=== PATIENT | female | born 1995 | race Caucasian/White ===

== ENCOUNTER → 2018-01-07 14:24 | Outpatient (CLI) | payer OTHER, SELFPAY ==
[2018-01-07 18:17] LABS: Chlamydia Trachomatis by PCR Negative (Negative); Neisserai gonorrhoeae by PCR Negative (Negative); Probe Check PASS; Sample Adequacy Control PASS; Specimen Processing Control PASS
== END ==
PROVIDERS: Visit Provider Obstetrics & Gynecology
DX: Z12.4 Encounter for screening for malignant neoplasm of cervix (principal); Z11.3 Encounter for screening for infections with a predominantly sexual mode of transmission
CPT/HCPCS: 87491; 87591; 88175; G0145

== ENCOUNTER → 2018-02-11 13:42 | Outpatient (CLI) | payer OTHER, SELFPAY ==
[2018-02-11 15:51] LABS: Absolute Lymphocyte Count 1.43 X10^3/ul (0.83-4.51); Absolute Neutrophil Count 6.5 X10^3/uL (2.0-7.7); Basophil# 0.02 X10^3/uL; Basophil% 0.2 % (0-1); Eosinophil# 0.11 X10^3/uL; Eosinophils% 1.3 % (0-5); Hematocrit 39.2 % (37-47); Hemoglobin 13.2 g/dl (12.0-15.0); Lymphocyte # 1.43 X10^3/ul (4.0); Lymphocyte % 16.6 % (19-41); Mean Corp Hgb Conc 33.7 g/gl (32-36); Mean Corpuscular Hgb 30.9 pg (27.0-32.0); Mean Corpuscular Volume 91.8 fL (81-99); Mean Platelet Vol. 10.4 fl (6.2-12.0); Monocyte# 0.56 X10^3/uL; Monocyte% 6.5 % (0-10); Neutrophil # 6.46 X10^3/uL (2.7-7.7); Neutrophil % 75.3 % (47-70); POSITIVE COUNT NO; POSITIVE DIFFERENTIAL NO; POSITIVE MORPHOLOGY NO; Platelet Count 275 K/mm3 (150-450); RBC Distribution Width CV 12.9 % (11.6-14.6); RBC Distribution Width SD 42.9 fl (35.1-43.9); Red Blood Count 4.27 M/mm3 (4.2-5.4); White Blood Count 8.6 K/mm3 (4.4-11.0)
[2018-02-11 15:57] LABS: Color, Urine Yellow (Yellow); Glucose, Dipstick Normal (Normal); Ketone-Dipstick Negative (Negative); Leukocyte Esterase-Dipstick Negative /ul (Negative); Nitrite-Dipstick Negative (Negative); Occult Blood-Urine Negative /ul (Negative); Protein-Dipstick Negative (Negative); Urine Bilirubin Dipstick Negative (Negative); Urine Clarity Sl. Cloudy (Clear); Urine Urobilinogen Normal (Normal); Urine pH 6.5 (5.0 - 8.0)
[2018-02-11 16:06] LABS: Amphetamine Urine VISTA NEGATIVE (<1000 ng/mL); Barbiturate Urine VISTA NEGATIVE (< 200 ng/mL); Benzodiazepine Urine VISTA NEGATIVE (< 200 ng/mL); Cocaine Urine VISTA NEGATIVE (< 300 ng/mL); Ecstacy Urine VISTA NEGATIVE (< 500 ng/mL); Methadone Urine VISTA NEGATIVE (< 300 ng/mL); PCP Urine VISTA NEGATIVE (< 25 ng/mL); THC Urine VISTA NEGATIVE (< 50 ng/mL); Vista UDS pH Range 6
[2018-02-11 16:21] LABS: Thyroid Stim Hormone (TSH) 3.15 uIU/mL (0.358-3.74)
[2018-02-12 01:21] LABS: Prenatal RPR NONREACTIVE (NONREACTIVE)
[2018-02-12 11:05] LABS: HIV - WCH Non-Reactive (Nonreactive); Rubella IgG 133.4 IU/mL
[2018-02-15 09:10] LABS: HEPATITIS B SURFACE AG Negative (Negative); Hep C Antibodies <0.1 s/co ratio (0.0-0.9)
== END ==
PROVIDERS: Visit Provider Obstetrics & Gynecology
DX: Z34.81 Encounter for supervision of other normal pregnancy, first trimester (principal)
CPT/HCPCS: 36415; 80307; 81002; 84443; 85025; 86703; 86762; 86803; 87340

== ENCOUNTER → 2018-06-03 10:23 | Outpatient (CLI) | payer OTHER, SELFPAY ==
[2018-06-03 10:38] LABS: Hematocrit 35.1 % (37-47); Hemoglobin 12.1 g/dl (12.0-15.0); Mean Corp Hgb Conc 34.5 g/gl (32-36); Mean Corpuscular Hgb 32.7 pg (27.0-32.0); Mean Corpuscular Volume 94.9 fL (81-99); Mean Platelet Vol. 9.8 fl (6.2-12.0); Platelet Count 253 K/mm3 (150-450); RBC Distribution Width CV 12.5 % (11.6-14.6); RBC Distribution Width SD 42.1 fl (35.1-43.9); White Blood Count 7.9 K/mm3 (4.4-11.0)
[2018-06-03 10:46] LABS: Scan Indicated on CBC? Y/N NO
[2018-06-03 10:56] LABS: Glucose Challenge Gest 1H 50g 139 mg/dL (70-140)
== END ==
PROVIDERS: Visit Provider Obstetrics & Gynecology
DX: Z34.83 Encounter for supervision of other normal pregnancy, third trimester (principal)
CPT/HCPCS: 36415; 82950; 85027; 86850

== ENCOUNTER → 2018-07-29 13:20 | Outpatient (CLI) | payer OTHER, SELFPAY ==
[2018-07-29 15:15] LABS: Group B Strep DNA By PCR Negative (Negative); Internal Control PASS; Probe Check PASS; Specimen Processing Control PASS
== END ==
PROVIDERS: Visit Provider Obstetrics & Gynecology
DX: Z36.85 Encounter for antenatal screening for Streptococcus B (principal)
CPT/HCPCS: 87081; 87653

== ENCOUNTER 2018-08-10 11:15 | Inpatient (IN) | payer OTHER, SELFPAY ==
[2018-08-10 11:28] VITALS: BMI 28.8
[2018-08-10] MEDS: Lactated Ringers 1,000 ML 50 ML IV (12:00)
[2018-08-10 12:45] LABS: Hematocrit 34.2 % (37-47); Hemoglobin 11.4 g/dl (12.0-15.0); Mean Corp Hgb Conc 33.3 g/gl (32-36); Mean Corpuscular Hgb 31.4 pg (27.0-32.0); Mean Corpuscular Volume 94.2 fL (81-99); Mean Platelet Vol. 10.6 fl (6.2-12.0); Platelet Count 344 K/mm3 (150-450); RBC Distribution Width CV 12.2 % (11.6-14.6); RBC Distribution Width SD 40.7 fl (35.1-43.9); Red Blood Count 3.63 M/mm3 (4.2-5.4); White Blood Count 9.4 K/mm3 (4.4-11.0)
[2018-08-10 12:51] LABS: Scan Indicated on CBC? Y/N NO
--- NOTE | 2018-08-10 17:57 | PCM.PN.BLA ---
Progress Note LABOR PROGRESS NOTE c/o painful contractions. AVSS, BP 145/94 P 75 Y 98.6 GEN - breathing through contractions, AAO x 3 FHR 130, moderate variability, + accelerations, no deceleratoins TOCO 4-5/10 min SVE 7/90/-2, head well applied to cervix A/P: 22yo @ 37 6/7wga in active labor, Cat I FHR -BPs mildly elevated, no sx preeclampsia, will continue to monitor. -Recommend starting pitocin, reviewed with patient risks, benefits. Pt in agreement with plan. -Maternal and statuses reassuring
[2018-08-10] MEDS: Oxytocin 30 units/NS 500 ml 30 UNITS/500 ML IV.SOLN 334 UNITS IV (22:37)
[2018-08-10] MEDS: Oxytocin 30 units/NS 500 ml 30 UNITS/500 ML IV.SOLN 167 UNITS IV (23:07)
--- NOTE | 2018-08-10 23:16 | PCM.OB.VAG ---
- Problem List (1) 37 weeks gestation of Status: Acute (2) (spontaneous vaginal delivery) Status: Acute Vaginal Delivery Maternal Presentation: Active Labor, Spontaneous Rupture of Membranes Amniotic Membrane Rupture Type: Spontaneous at home Rupture of Membrane time: 08/10/18 0600h Amniotic Fluid Description: Bloody Final JENS: 08/25/18 Final EJNS Source: US <20 weeks Gestational age: 37 Weeks and 6 Days Date of Procedure: 08/10/18 Pre-Operative Diagnosis: 37 6/7wga, labor Post-Operative Diagnosis: 37 6/7wga, labor Surgery/ Procedure Performed: Spontaneous Vaginal Delivery Type of Anesthesia: None Description of Procedure: Patient was FD/+1 station on my arrival. She pushed intermittently with and without coaching over 2 hour to deliver a vigorous male infant in CARLOZ. The was placed on the maternal abdomen and further attended by nursery personnel. The cord was doubly clamped and cut after 3 minutes of life. Cord blood was obtained. The placenta delivered spontaneously and appeared intact on inspection. A second degree perineal laceration with vaginal extension was repaired with 3-0 Vicryl Rapide following injection of 1% lidocaine. Sponge and needle counts correct x 2. Presentation: Vertex Placental Delivery Description: Spontaneous Placenta Disposition: [facility] Cord Vessel Description: 3 Vessels Nuchal Cord Compression: Without compression Cord Gases drawn per routine: ABG, VBG Cord Entanglement: None Estimated Blood Loss: 450 ml Infant A gender: Male (1 minute): 8 (5 minute): 10 Episiotomy Description: None Laceration: Midline, Perineal Extension/lac, Vaginal Extension/lac, 2nd degree Medications given after delivery: IV Pitocin Complications: None
--- NOTE | 2018-08-10 23:30 | DCINST_ITS ---
Discharge Diet: No Restrictions Discharge Activity: Return to Normal Activity, May Shower, May Take a Tub Bath May resume sexual activity in: 6 weeks Lifting Restrictions: 10 - 20 lb Call your doctor if you observe: Fever of 101 or Higher, Inability to urinate, Inability to have a bowel movement, Using more than one pad per hour, Shortness of breath, Chest pain, Calf discomfort, Uncontrolled pain, - - Severe or persistent headache Suture Line Care: Avoid Pulling/Pushing Cleanse incision/area with: Soap & Water Additional Instructions: If you experience any of the following, contact your healthcare provider. * Bleeding that soaks a pad every hour for 2 hours * Fever 100.4 or higher * Unrelieved incision or abdominal pain * Swelling, redness, discharge or bleeding from your incision or episiotomy site * Your incision begins to separate * Problems urinating (including inability to urinate or burning while urinating). * Visual changes * Severe headache * Flu-like symptoms * Pain or redness in one of both of your breasts * Pain, warmth, tenderness or swelling in your legs, especially the calf area * Frequent nausea and vomiting * Symptoms of depression or anxiety If you experience any of the following, call 911 or go to the nearest Emergency Room. * Chest pain * Problems breathing * Seizure activity * Partial or complete paralysis of a body part, slurred speech, weakness or drooping of the face, or a sudden inability to walk or hold your balance Allergies/Adverse Reactions: Allergies Iodine and Iodide Containing Produc Allergy (Verified 08/10/18 11:30) Swelling shellfish derived Allergy (Verified 07/06/17 21:14) Anaphylaxis Medications to take at Discharge Vits [Prenatabs FA ] 2 tab PO QHS 07/06/17 Fluoxetine [Prozac] 20 mg PO DAILY 08/10/18 Ibuprofen 600 mg PO TID PRN #30 tablet 08/10/18 The following prescriptions were given: Ibuprofen 600 mg PO TID PRN #30 tablet PRN Reason: Pain Please Follow Up With: Ricardo Christy MD When: 1-2 weeks Please Follow Up With: Ricardo Christy MD When: 6 weeks Primary Care Physician: [facility] [Primary Care Provider] - Test Results: Test results from this visit will be discussed in further detail at your follow- up appointment, if applicable.
[2018-08-11] MEDS: Ibuprofen 600 MG Tablet PO (00:35)
[2018-08-11] MEDS: 0.9% Saline Lock 10 ML Syringe IV (00:35)
[2018-08-11] MEDS: Acetaminophen 325 MG Tablet PO ×3 (02:15→22:05)
[2018-08-11 04:45] VITALS: BP 138/69; PULSE 67; RESP 18; TEMP 36.7; O2SAT 97
[2018-08-11 05:57] LABS: Hematocrit 32.7 % (37-47); Hemoglobin 11.1 g/dl (12.0-15.0); Mean Corp Hgb Conc 33.9 g/gl (32-36); Mean Corpuscular Hgb 31.7 pg (27.0-32.0); Mean Corpuscular Volume 93.4 fL (81-99); Mean Platelet Vol. 10.4 fl (6.2-12.0); Platelet Count 354 K/mm3 (150-450); RBC Distribution Width CV 12.1 % (11.6-14.6); White Blood Count 17.6 K/mm3 (4.4-11.0)
[2018-08-11 06:05] LABS: Scan Indicated on CBC? Y/N NO
--- NOTE | 2018-08-11 07:34 | PCM.PN.OB ---
Patient Problems: Active and Suspected Problems 37 weeks gestation of (Acute) (spontaneous vaginal delivery) (Acute) Subjective: She is sore this morning in legs and perineum. Her vulvar swelling has decreased. denies heavy lochia. No headache, vision changes or abdominal pain. Relates baseline BPs 140/70 prepregnancy. She is bottlefeeding now, but plans to pump when her milk comes in. Objective: avss - Physical Exam General: Alert, Oriented x3, Cooperative, No apparent distress HEENT: Atraumatic, Normocephalic Lungs: Clear to auscultation, Normal air movement Cardiovascular: Regular rate, Regular Rhythm, Normal S1, Normal S2 Abdomen: Soft, Non Tender, Non-Distended Extremities: No edema, No Calf Tenderness Neurological: Neuro grossly intact Psych/Mental Status: Normal Affect, Appropriate, Alert and oriented to time, place, person, mood and affect Vital Signs Temp Pulse Resp BP Pulse Ox 98.1 F 67 18 138/69 H 97 08/11/18 04:45 08/11/18 04:45 08/11/18 04:45 08/11/18 04:45 08/11/18 04:45 Oxygen Delivery Method Room Air Weight: 78.471 kg Body Mass Index (BMI) 28.8 Intake and Output for Last 24 Hours 08/09/18 08/10/18 08/11/18 23:59 23:59 23:59 Intake Total 1375 / 1375 Output Total 700 / 700 Balance 1375 / 1375 -700 / -700 Laboratory Tests Past 24 Hrs 08/10/18 08/10/18 08/11/18 12:00 12:00 05:30 WBC 9.4 17.6 H RBC 3.63 L 3.50 L Hgb 11.4 L 11.1 L Hct 34.2 L 32.7 L MCV 94.2 93.4 MCH 31.4 31.7 MCHC 33.3 33.9 RDW 12.2 12.1 RDW Differential 40.7 40.0 Plt Count 344 354 MPV 10.6 10.4 Blood Type A NEGATIVE Antibody Screen NEGATIVE Screen Baby's Blood Type Baby's RADHA 08/11/18 05:30 WBC RBC Hgb Hct MCV MCH MCHC RDW RDW Differential Plt Count MPV Blood Type Antibody Screen Screen NEGATIVE Baby's Blood Type A POSITIVE Baby's RADHA NEGATIVE Medical Necessity - Tobacco Use Smoking Status: Former smoker Assessment/Plan All Active Problems 37 weeks gestation of (Acute) (spontaneous vaginal delivery) (Acute) 22yo PPD#1 s/p doing well. -Rh neg - f/u bleed screen -Breast and bottlefeeding -Routine care
[2018-08-11 08:00] VITALS: BP 133/89; PULSE 70; RESP 18; TEMP 36.7; O2SAT 98
[2018-08-11] MEDS: Naproxen 250 MG Tablet 500 MG PO (10:15)
[2018-08-11 12:30] VITALS: BP 138/92; PULSE 84; RESP 16; TEMP 36.9
--- NOTE | 2018-08-11 14:25 | NURSING ---
Addendum entered by Leia Bhakta 08/11/18 14:33: note time on feeling arms feeling tired and heavy occurred at 1400 Original Note: Patient states arms are feeling heavy and she can hardly lift them. Also her back is aching. Vitals are stable bp 129/76 P 89 po 98% Resp 18 temp 98.5 Arms warm with good capillary refill, and able to move encouraged her to move her arms and will get patient kpad for her back and re evaluate in 30 min
[2018-08-11 14:30] VITALS: BP 129/76; PULSE 89; RESP 18; TEMP 36.9; O2SAT 98
--- NOTE | 2018-08-11 14:35 | NURSING ---
Patient states ate lunch and is now feeling better
[2018-08-11 16:40] VITALS: BP 141/90; PULSE 93; RESP 16; TEMP 36.9
[2018-08-11 22:00] VITALS: BP 133/74; PULSE 95; RESP 18; TEMP 36.8; O2SAT 97
[2018-08-11] MEDS: Prenatal Vits Tablet 2 TABLET PO (22:08)
[2018-08-12 02:00] VITALS: BP 123/68; PULSE 67; RESP 18; TEMP 36.5; O2SAT 97
[2018-08-12 08:00] VITALS: BP 128/81; PULSE 75; RESP 16; TEMP 36.7
[2018-08-12] MEDS: Acetaminophen 325 MG Tablet PO (08:13)
--- NOTE | 2018-08-12 09:02 | PCM.PN.OB ---
Patient Problems: Active and Suspected Problems 37 weeks gestation of (Acute) (spontaneous vaginal delivery) (Acute) Subjective: No specific complaints. Pumping breast milk Objective: Afeb VSS - Physical Exam General: Alert, Oriented x3, Cooperative, No apparent distress Lungs: Clear to auscultation, Normal air movement Cardiovascular: Regular rate, Regular Rhythm Abdomen: Soft, Non Tender, Non-Distended, - - Fundus firm nontender Extremities: No edema, No Calf Tenderness Skin: No rashes Neurological: Neuro grossly intact Psych/Mental Status: Normal Affect Comment: Lochia appropriate Vital Signs Temp Pulse Resp BP Pulse Ox 98.1 F 75 16 128/81 H 97 08/12/18 08:00 08/12/18 08:00 08/12/18 08:00 08/12/18 08:00 08/12/18 02:00 Oxygen Delivery Method Room Air Weight: 173 lb Body Mass Index (BMI) 28.8 Intake and Output for Last 24 Hours 08/10/18 08/11/18 08/12/18 23:59 23:59 23:59 Intake Total 1375 / 1375 Output Total 700 / 700 Balance 1375 / 1375 -700 / -700 Microbiology Past 72 Hours 08/10/18 11:03 Urine Culture - Final Urine, Clean Catch Mixed Gram Positive Organisms Medical Necessity - Tobacco Use Smoking Status: Former smoker Assessment/Plan All Active Problems 37 weeks gestation of (Acute) (spontaneous vaginal delivery) (Acute) Doing well on PP day#2. Cleared for discharge to home today. Home going instructions and warnings given.
--- NOTE | 2018-08-12 09:04 | PCM.DC.SUM ---
Discharge Date and Diagnosis - Problem List Patient Problems: Active and Suspected Problems 37 weeks gestation of (Acute) (spontaneous vaginal delivery) (Acute) Date of Admission: 08/10/18 Date of Discharge: 08/12/18 - Primary Discharge Diagnosis Active and Suspected Problems 37 weeks gestation of (Acute) (spontaneous vaginal delivery) (Acute) Hospital Course and Treatment Operations: None Procedures: - - Summary of Care Provided: The patient is a 22 year old F [admitted in active labor. Progressed to FD then pushed to deliver a live without complication. Post course unremarkable. Discharged home on PP day#2.] Patient Problems: Active and Suspected Problems 37 weeks gestation of (Acute) (spontaneous vaginal delivery) (Acute) - Physical Exam Vital Signs Temp Pulse Resp BP Pulse Ox 98.1 F 75 16 128/81 H 97 08/12/18 08:00 08/12/18 08:00 08/12/18 08:00 08/12/18 08:00 08/12/18 02:00 Oxygen Delivery Method Room Air Weight: 173 lb Body Mass Index (BMI) 28.8 Intake and Output for Last 24 Hours 08/10/18 08/11/18 08/12/18 23:59 23:59 23:59 Intake Total 1375 / 1375 Output Total 700 / 700 Balance 1375 / 1375 -700 / -700 Microbiology Past 72 Hours 08/10/18 11:03 Urine Culture - Final Urine, Clean Catch Mixed Gram Positive Organisms Discharge Diet: No Restrictions Discharge Activity: Return to Normal Activity, May Shower, May Take a Tub Bath Return to work on:: 10/11/18 May resume sexual activity in: 6 weeks Call your doctor if you observe: Fever of 101 or Higher, Inability to urinate, Inability to have a bowel movement, Using more than one pad per hour, Shortness of breath, Chest pain, Calf discomfort, Uncontrolled pain, - - Severe or persistent headache Suture Line Care: Avoid Pulling/Pushing Cleanse incision/area with: Soap & Water Home Medications: Medications to take at Discharge Vits [Prenatabs FA ] 2 tab PO QHS 07/06/17 Fluoxetine [Prozac] 20 mg PO DAILY 08/10/18 Ibuprofen 600 mg PO TID PRN #30 tablet 08/10/18 Following Prescrptions Were Given to Patient: Ibuprofen 600 mg PO TID PRN #30 tablet PRN Reason: Pain [facility] Phys[facility] [Primary Care Provider] - Please follow up with your Primary Care Physician in: 6 weeks Please Follow Up With: Ricardo Christy MD Please Follow Up With: Kamini Skelton MD When: 6 weeks Disposition: Home Minutes spent on discharge:: 15 Patient Condition:: Good Medical Necessity - Tobacco Use Smoking Status: Former smoker Meaningful Use Info Meaningful Use Diagnoses (Choose all that apply): None applicable
== END 2018-08-12 09:55 | disposition home or self-care (01) | DRG 807 ==
PROVIDERS: Admitting Provider Obstetrics & Gynecology; Referring Provider Obstetrics & Gynecology; Visit Provider Obstetrics & Gynecology
DX: O42.02 Full-term premature rupture of membranes, onset of labor within 24 hours of rupture (principal); Z37.0 Single live birth; O70.1 Second degree perineal laceration during delivery; O99.344 Other mental disorders complicating childbirth; F41.9 Anxiety disorder, unspecified; Z3A.37 37 weeks gestation of pregnancy; Z87.891 Personal history of nicotine dependence
CPT/HCPCS: 59025; 59050; 85027; 85461; 86850; 86900; 87086; 87088; 90384; 99218; J7120; A4216; G0378; J2790

== ENCOUNTER → 2019-04-27 | Outpatient (CLI) | payer OTHER, SELFPAY ==
[2019-04-27 23:17] LABS: Chlamydia Trachomatis by PCR Negative (Negative); Neisserai gonorrhoeae by PCR Negative (Negative); Probe Check PASS; Sample Adequacy Control PASS; Specimen Processing Control PASS
== END | disposition home or self-care (01) ==
PROVIDERS: Visit Provider Obstetrics & Gynecology
DX: N91.2 Amenorrhea, unspecified (principal); Z11.3 Encounter for screening for infections with a predominantly sexual mode of transmission
CPT/HCPCS: 36415; 84702; 87491; 87591

== ENCOUNTER → 2019-05-12 10:50 | Outpatient (CLI) | payer OTHER, SELFPAY ==
[2019-05-12 11:43] LABS: Absolute Neutrophil Count 4.8 X10^3/uL (2.0-7.7); Basophil# 0.03 X10^3/uL; Basophil% 0.4 % (0-1); Eosinophil# 0.07 X10^3/uL; Eosinophils% 0.9 % (0-5); Hematocrit 42.2 % (37-47); Hemoglobin 14.3 g/dL (12.0-15.0); Lymphocyte % 29.8 % (19-41); Mean Corp Hgb Conc 33.9 g/dL (32-36); Mean Corpuscular Hgb 29.8 pg (27.0-32.0); Mean Corpuscular Volume 87.9 fL (81-99); Mean Platelet Vol. 9.8 fl (6.2-12.0); Monocyte# 0.56 X10^3/uL; Monocyte% 7.3 % (0-10); NRBC Flagged by Analyzer 0 % (0-5); Neutrophil # 4.75 X10^3/uL (2.7-7.7); Neutrophil % 61.5 % (47-70); Platelet Count 259 K/mm3 (150-450); RBC Distribution Width CV 12.8 % (11.6-14.6); RBC Distribution Width SD 41.6 fl (35.1-43.9); White Blood Count 7.7 K/mm3 (4.4-11.0)
[2019-05-12 11:49] LABS: Color, Urine Yellow (Yellow); Glucose, Dipstick Normal (Normal); Ketone-Dipstick Negative (Negative); Leukocyte Esterase-Dipstick 500 /ul (Negative); Nitrite-Dipstick Negative (Negative); Occult Blood-Urine Negative /ul (Negative); Protein-Dipstick Negative (Negative); Specific Gravity, Urine 1.005 (1.002-1.030); Urine Bilirubin Dipstick Negative (Negative); Urine Clarity Sl. Cloudy (Clear); Urine Urobilinogen Normal (Normal)
[2019-05-12 11:54] LABS: Amphetamine Urine VISTA NEGATIVE (<1000 ng/mL); Barbiturate Urine VISTA NEGATIVE (< 200 ng/mL); Benzodiazepine Urine VISTA NEGATIVE (< 200 ng/mL); Cocaine Urine VISTA NEGATIVE (< 300 ng/mL); Ecstacy Urine VISTA NEGATIVE (< 500 ng/mL); Methadone Urine VISTA NEGATIVE (< 300 ng/mL); PCP Urine VISTA NEGATIVE (< 25 ng/mL); THC Urine VISTA NEGATIVE (< 50 ng/mL); Vista UDS pH Range 6
[2019-05-12 12:08] LABS: Thyroid Stim Hormone (TSH) 2.46 uIU/mL (0.358-3.74)
[2019-05-12 12:51] LABS: HIV - WCH Non-Reactive (Nonreactive); Hepatitis B Surface Antigen Non-Reactive (Nonreactive); Hepatitis C Antibody Non-Reactive (Nonreactive); Rubella IgG 53.2 IU/mL
[2019-05-13 01:39] LABS: Prenatal RPR NONREACTIVE (NONREACTIVE)
== END ==
PROVIDERS: Visit Provider Obstetrics & Gynecology
DX: Z34.81 Encounter for supervision of other normal pregnancy, first trimester (principal)
CPT/HCPCS: 36415; 80307; 81002; 84443; 85025; 86703; 86762; 86803; 87340

== ENCOUNTER → 2019-09-22 16:06 | Outpatient (CLI) | payer OTHER, SELFPAY ==
[2019-09-22 17:25] LABS: Hematocrit 33.7 % (37-47); Hemoglobin 11.5 g/dL (12.0-15.0); Mean Corp Hgb Conc 34.1 g/dL (32-36); Mean Corpuscular Hgb 32.7 pg (27.0-32.0); Mean Corpuscular Volume 95.7 fL (81-99); Mean Platelet Vol. 10.2 fl (6.2-12.0); Platelet Count 281 K/mm3 (150-450); RBC Distribution Width CV 12.8 % (11.6-14.6); RBC Distribution Width SD 44.2 fl (35.1-43.9); Red Blood Count 3.52 M/mm3 (4.2-5.4); White Blood Count 9.1 K/mm3 (4.4-11.0)
[2019-09-22 17:29] LABS: Glucose Challenge Gest 1H 50g 103 mg/dL (70-140)
== END ==
PROVIDERS: Visit Provider Obstetrics & Gynecology
DX: Z34.83 Encounter for supervision of other normal pregnancy, third trimester (principal)
CPT/HCPCS: 36415; 82950; 85027; 86850

== ENCOUNTER 2019-10-25 16:35 | Outpatient (CLI) | payer OTHER, SELFPAY ==
[2019-10-25] MEDS: Betamethasone/Betamethasone 30 MG/5 ML Vial 12 MG IM (16:54)
== END 2019-10-25 17:30 | disposition home or self-care (01) ==
LOC: LAB 16:37 → OBT 16:37
PROVIDERS: Referring Provider Obstetrics & Gynecology; Visit Provider Obstetrics & Gynecology
DX: Z36.85 Encounter for antenatal screening for Streptococcus B (principal)
CPT/HCPCS: 96372; 99218; G0378; J0702

== ENCOUNTER → 2019-10-25 18:02 | Outpatient (CLI) | payer OTHER, SELFPAY | PROVIDERS: Visit Provider Obstetrics & Gynecology | DX: Z36.85 Encounter for antenatal screening for Streptococcus B (principal) | CPT/HCPCS: 87077; 87081; 87186 ==

== ENCOUNTER 2019-10-26 16:47 | Outpatient (CLI) | payer OTHER, SELFPAY ==
[2019-10-26 16:57] VITALS: BMI 27.3
[2019-10-26] MEDS: Betamethasone/Betamethasone 30 MG/5 ML Vial 12 MG IM (17:10)
--- NOTE | 2019-11-05 16:50 | OB.TRI.NOTE ---
History of Present Illness Date of Service: 10/26/19 Was patient seen by the physician?: No Reason For Visit: INJECTION Date of Service: 10/26/19 Final JENS: 12/05/19 Final JENS Source: US <20 weeks Gestational age: 34 Weeks and 3 Days History of Present Illness: 34+ week intrauterine with a history of delivery and a prior and labor with this presents for a second Celestone injection. care has otherwise been uneventful. Allergies Iodine and Iodide Containing Produc Allergy (Verified 10/26/19 16:59) Swelling shellfish derived Allergy (Verified 10/26/19 16:59) Anaphylaxis
== END 2019-10-26 17:15 | disposition home or self-care (01) ==
LOC: WPOUT 16:51 → OBT 16:52
PROVIDERS: Referring Provider Obstetrics & Gynecology; Visit Provider Obstetrics & Gynecology
DX: O60.03 Preterm labor without delivery, third trimester (principal); Z3A.34 34 weeks gestation of pregnancy; Z88.8 Allergy status to other drugs, medicaments and biological substances
CPT/HCPCS: 96372; 99218; G0378; J0702

== ENCOUNTER 2019-12-03 06:53 | Inpatient (IN) | payer OTHER, SELFPAY ==
[2019-12-03] VITALS (17 sets, daily range): BP systolic 109–130; BP diastolic 55–81; PULSE 68–100; RESP 18; TEMP 36.3–37.2; O2SAT 96–99; BMI 27.8
[2019-12-03] MEDS: Lactated Ringers 1,000 ML 50 ML IV (08:00)
[2019-12-03] MEDS: Oxytocin 30 units/NS 500 ml 30 UNITS/500 ML IV.SOLN IV (08:06)
[2019-12-03 08:44] LABS: Absolute Lymphocyte Count 2.34 X10^3/uL (0.83-4.51); Absolute Neutrophil Count 11.7 X10^3/uL (2.0-7.7); Basophil# 0.05 X10^3/uL; Basophil% 0.3 % (0-1); Eosinophils% 1.3 % (0-5); Hematocrit 33.9 % (37-47); Hemoglobin 11.5 g/dL (12.0-15.0); Lymphocyte # 2.34 X10^3/ul (4.0); Lymphocyte % 14.8 % (19-41); Mean Corp Hgb Conc 33.9 g/dL (32-36); Mean Corpuscular Hgb 32.7 pg (27.0-32.0); Mean Corpuscular Volume 96.3 fL (81-99); Mean Platelet Vol. 10.8 fl (6.2-12.0); Monocyte# 1.33 X10^3/uL; Monocyte% 8.4 % (0-10); NRBC Flagged by Analyzer 0 % (0-5); Neutrophil # 11.71 X10^3/uL (2.7-7.7); Neutrophil % 74.4 % (47-70); Platelet Count 298 K/mm3 (150-450); RBC Distribution Width CV 12.8 % (11.6-14.6); RBC Distribution Width SD 44.8 fl (35.1-43.9); Red Blood Count 3.52 M/mm3 (4.2-5.4); White Blood Count 15.8 K/mm3 (4.4-11.0)
--- NOTE | 2019-12-03 08:45 | PCM.HP.OB ---
- Problem List (1) 39 weeks gestation of Status: Acute History Date of Admission: 12/03/19 Final JENS: 12/05/19 Final JENS Source: US <20 weeks Gestational age: 39 Weeks and 5 Days History of this : This is a 24 year-old, G [4], P [1112], at 39 5/7 weeks gestational age presenting for scheduled induction of labor. Problem List: GBS positive hx delivery - s/p IM progesterone Iodine, shellfish allergy Smokes 8-10 cigarettes/day Desires tubal sterilization if section Medical History: Medical History (Last Updated 12/03/19 @ 10:[address] Kamini Skelton MD) Anxiety and depression F41.9, F32.9 Vitiligo L80 Surgical History: Surgical History (Last Updated 12/03/19 @ 10:[address] Kamini Skelton MD) H/O dilation and curettage Z98.890 2016 Allergies Iodine and Iodide Containing Produc Allergy (Verified 10/26/19 16:59) Swelling shellfish derived Allergy (Verified 10/26/19 16:59) Anaphylaxis Home Medications: Home Medications Vits [Prenatabs FA ] 1 tab PO QHS 07/06/17 Progesterone 1 ml IM QWEEK 10/25/19 Smoking Status: Current every day smoker Alcohol: None Number of Fetus(es): 1 NST - FHR Rate Baby A Baseline: 140 Variability:: Moderate Accelerations:: 15 x 15 Decelerations:: None NST Reactive:: Yes FHR Category:: Category I Uterine Activity:: 1-2/10, History Past Pregnancies: Past Pregnancies Delivery Date Name GA/ Weeks Outcome Route Wt Infant Sex Labor Length Anesthesia Delivery Location Provider FOB 06/2016 8 SAB, D&C [place] 06/2017 Glo 24 PTL, placental abruption, Nicu x 6 months [id number] F 3 None Trufantaditi Silva 07/2018 Maurilio 37 uncomplicated [id number] M 12 Epidural Patric Anthony Silva Labs: Mom's Problem List Problem Status Onset Code 39 weeks gestation of Acute Z3A.39 Mom's Labs & Results 12/03/19 12/03/19 12/03/19 08:00 08:00 08:00 WBC 15.8 H RBC 3.52 L Hgb 11.5 L Hct 33.9 L MCV 96.3 MCH 32.7 H MCHC 33.9 RDW Std Deviation 44.8 H RDW Coeff of Yamilet 12.8 Plt Count 298 MPV 10.8 Immature Gran % (Auto) 0.800 Neut % (Auto) 74.4 H Lymph % (Auto) 14.8 L Mcintosh % (Auto) 8.4 Eos % (Auto) 1.3 Baso % (Auto) 0.3 Absolute Neuts (auto) 11.7 H Absolute Lymphs (auto) 2.34 Nucleated RBC % 0 Blood Type A NEGATIVE Antibody Screen TNP NEGATIVE Course Did the patient receive Yes care? Labs Blood Type: A RH: NEGATIVE RPR/VDRL/Syphilis Nonreactive Rubella status Immune HbSAg Negative Date Done: 05/12/19 Chlamydia Negative Gonorrhea Negative HIV/AIDS Non-Reactive Group B Strep: Positive Current Obstetrical History Gestational Diabetes No Incompetent Cervix No Infertility No IUGR No Macrosomia No Hypertension/Pre-eclampsia No Placenta Previa/Abruption No PTL/PROM No Uterine anomaly No Oligohydramnios No Polyhydramnios No Multiple gestation No Past Medical History Asthma No Diabetes No Hypertension No Heart disease No Mitral valve prolapse No Neurologic/Seizure disorder/ Yes Migraines Kidney disease No Liver disease No Varicosities No Clotting disorders/Hx of DVT No Thyroid Dysfunction No Other medical diseases No Psychiatric disorders Yes Major trauma No Abnormal PAP smear No Sleep apnea No Mammogram in the last 2 years No Enter DETAILS of medical hx anxiety/ depression history Medications Taken During Dose/Freq.: [Progesterone] weekly Last Date/Time of Medication 35 weeks Taken: [Progesterone] Reason for taking medication [ Hx PTL Progesterone] Social History Marital Status: Alleged father Ricardo Hx Smoking Yes Smoking Status Current every day smoker Number of Visits: 13 Physical Exam Vitals: Vital Signs Temp Pulse BP Pulse Ox 98.3 F 73 110/60 98 12/03/19 07:26 12/03/19 09:36 12/03/19 09:36 12/03/19 07:26 General: Alert, Oriented x3, Cooperative, No apparent distress HEENT: Atraumatic, Normocephalic Cardiovascular: Regular rate, Regular Rhythm, Normal S1, Normal S2, No murmurs Lungs: Clear to auscultation, Normal air movement Abdomen: Soft, Non Tender, Non-Distended, Gravid Extremities:: No edema Estimated gestational size: Appropriate for gestational size Presentation: Cephalic Cervix Dilation (cm): 3 Station: -2 Effacement (%): 75 Assessment/Plan All Active Problems (Last Updated 12/03/19 @ 10:[address] Kamini Skelton MD) 39 weeks gestation of (Acute) This is a 24 year-old, G [4], P [1112], at 39 5/7 weeks gestational age. -Pitocin for IOL -PCN for GBS ppx - status reassuring, Cat I -Consents signed and reviewed. Following discussion, will plan for tubal sterilization if section occurs. Otherwise pt plans interval IUD.
--- NOTE | 2019-12-03 12:28 | PCM.PN.BLA ---
Progress Note LABOR PROGRESS NOTE Contractions are regular. AVSS GEN - NAD, AAO x 3 FHR 130, moderate variability, + accelerations, no decelerations TOCO 5/10 min SVE 5.5/75/-3 A/P: 24yo @ 39 5/7wga, IOL, Cat I FHR -Amniotomy performed, clear fluid -Continue pitocin as tolerated by mother and fetus STROKE Vital Signs/Narrative: Vital Signs Temp Pulse BP 12/03/19 11:37 68 114/64 12/03/19 10:46 98.3 F 73 120/67 12/03/19 09:36 73 110/60 12/03/19 08:44 89 130/72 H
[2019-12-03] MEDS: Oxytocin 30 units/NS 500 ml 30 UNITS/500 ML IV.SOLN 334 UNITS IV (14:28)
--- NOTE | 2019-12-03 15:06 | PCM.OPRPT ---
Problem List (1) 39 weeks gestation of Status: Acute (2) Shoulder dystocia, delivered, current hospitalization Status: Acute (3) (spontaneous vaginal delivery) Status: Acute Vaginal Delivery Maternal Presentation: Elective Induction Method of Induction: Pitocin, Amniotomy Amniotic Membrane Rupture Type: Artificial Rupture of Membrane time: 1220h 12/03/19 Amniotic Fluid Description: Clear Final JENS: 12/05/19 Final JENS Source: US <20 weeks Gestational age: 39 Weeks and 5 Days doctor who attended delivery (if requested by OB): Claudia John Date of Procedure: 12/03/19 Pre-Operative Diagnosis: 39 5/7wga Post-Operative Diagnosis: 39 5/7wga, shoulder dystocia Surgery/ Procedure Performed: Spontaneous Vaginal Delivery Type of Anesthesia: Local with 1% lidocaine Description of Procedure: Patient was FD/+1 station and pushed to deliver infant head in CORAL. The infant mouth and nares were bulb suctioned. There was turtling however with subsequent maternal expulsive effort. The patient stopped pushing and assistance was requested. The patient was flattened, McRobert's employed with suprapubic pressure. I cut a right mediolateral episiotomy and attempted delivery of the posterior arm, however the arm was extended proximally. Again, suprapubic pressure was employed with delivery of the anterior shoulder. The posterior shoulders delivered to reveal a large male infant. The infant was placed on the maternal abdomen. The cord was doubly clamped and cut immediately and the passed to the awaiting Pediatric Hospitalist for evaluation. Cord gases and cord blood specimen were obtained. The placenta delivered spontaneously and appeared intact on inspection. One percent Lidocaine was locally injected at the episiotomy site for a total of 25cc throughout the repair. The right mediolateral episiotomy was repaired using a 3-0 Vicryl Rapide with excellent hemostasis. Sponge and needle counts correct x 2. Presentation: Vertex Placental Delivery Description: Spontaneous Placenta Disposition: [facility] Cord Vessel Description: 3 Vessels Nuchal Cord Compression: Without compression Cord Gases drawn per routine: ABG, VBG Cord Entanglement: None Estimated Blood Loss: 350 A gender: Male (1 minute): 8 (5 minute): 9 Episiotomy Description: Right Mediolateral, 2nd degree Laceration: None Medications given after delivery: IV Pitocin Complications: None
[2019-12-03] MEDS: Acetaminophen 500 MG Tablet 1000 MG PO (16:51)
[2019-12-03] MEDS: Dibucaine 30 GM Tube 1 APPLIC TOPICAL (16:52)
[2019-12-03] MEDS: Hydrocortisone 2.5% Crm 1 APPLIC TOPICAL (16:53)
[2019-12-03] MEDS: Prenatal Vits Tablet 1 TABLET PO (23:04)
[2019-12-03] MEDS: Ibuprofen 600 MG Tablet PO (23:32)
[2019-12-04 04:00] VITALS: BP 114/78; BP 90/42; PULSE 65; RESP 18; TEMP 36.7; O2SAT 100
[2019-12-04] MEDS: Acetaminophen 500 MG Tablet 1000 MG PO ×2 (04:07→16:53)
--- NOTE | 2019-12-04 07:29 | PCM.PN.BLA ---
Progress Note Visited room. Patient not present, informed she went outside. Will return later to assess. STROKE Vital Signs/Narrative: Vital Signs Temp Pulse Resp BP BP Pulse Ox 12/04/19 04:00 98.0 F 65 18 90/42 L 114/78 100
[2019-12-04 09:30] VITALS: BP 106/48; PULSE 77; RESP 18; TEMP 36.7
--- NOTE | 2019-12-04 09:58 | NURSING ---
Hemorrhoids noted, patient denies discomfort. Offered ice pack for slight edema. Patient denied at this time.
--- NOTE | 2019-12-04 10:02 | PCM.PN.OB ---
Patient Problems: Active and Suspected Problems (Last Updated 12/03/19 @ 10:[address] Kamini Skelton MD) Shoulder dystocia, delivered, current hospitalization (Acute) (spontaneous vaginal delivery) (Acute) 39 weeks gestation of (Acute) Subjective: Denies significant pain. Feels well. OOB, ambulating without difficulty. Denies heavy lochia. She plans to cut back smoking while . Infant nursing well. Circ planned. Objective: AVSS - Physical Exam Vitals/I&O's: Vital Signs Temp Pulse Resp BP Pulse Ox 98.1 F 77 18 106/48 L 100 12/04/19 09:30 12/04/19 09:30 12/04/19 09:30 12/04/19 09:30 12/04/19 04:00 Oxygen Delivery Method Room Air Weight: 75.8 kg Body Mass Index (BMI) 27.8 Intake and Output for Last 24 Hours 12/02/19 12/03/19 12/04/19 23:59 23:59 23:59 Intake Total 1125.94 / 1125.94 Balance 1125.94 / 1125.94 General: Alert, Oriented x3, Cooperative, No apparent distress HEENT: Atraumatic, Normocephalic Lungs: Normal air movement Cardiovascular: Regular rate, Regular Rhythm Abdomen: Soft, Non Tender, Non-Distended, - - fundus firm and nontender, lochia scant Extremities: No edema, No Calf Tenderness Neurological: Neuro grossly intact Psych/Mental Status: Normal Affect, Appropriate, Alert and oriented to time, place, person, mood and affect Laboratory Results 12/03/19 17:10: Screen NEGATIVE, Baby's Blood Type O POSITIVE, Baby's RADHA NEGATIVE Current Medications Acetaminophen (Tylenol) 1,000 mg PO Q8H PRN PRN PRN Reason: Pain Score 1-10/10 Last Admin: 12/04/19 04:07 Dose: 1,000 mg Documented by: Bisacodyl (Dulcolax) 10 mg RECTAL UD PRN PRN Reason: If no BM Dibucaine (Dibucaine) 1 applic TOPICAL TID PRN PRN; Protocol PRN Reason: Discomfort Last Admin: 12/03/19 16:52 Dose: 1 applicatio Documented by: Hydrocortisone (Hytone) 1 applic TOPICAL TID PRN PRN; Protocol PRN Reason: Discomfort Last Admin: 12/03/19 16:53 Dose: 1 applicatio Documented by: Ibuprofen (Motrin) 600 mg PO Q6H PRN PRN PRN Reason: Pain Score 1-10/10 Last Admin: 12/03/19 23:32 Dose: 600 mg Documented by: Methylergonovine Maleate (Methergine) 0.2 mg IM X1 PRN PRN Reason: Excess bleeding/uterine atony Ondansetron HCl (Zofran) 4 mg IV Q4H PRN PRN PRN Reason: NAUSEA Multivit/Folic Acid/Iron (Prenatabs Fa) 1 tablet PO QHS RICARDO Last Admin: 12/03/19 23:04 Dose: 1 tablet Documented by: Senna/Docusate Sodium (Senokot-S, Latoya-Colace) 1 - 2 tablet PO DAILY PRN PRN PRN Reason: Constipation Simethicone (Mylicon) 80 mg PO PCHS PRN PRN Reason: Indigestion/Stomach pain Sodium Chloride () 5 - 15 ml IV UD PRN PRN Reason: SALINE FLUSH Medical Necessity - Tobacco Use Smoking Status: Current every day smoker Assessment/Plan All Active Problems (Last Updated 12/03/19 @ 10:[address] Kamini Skelton MD) Shoulder dystocia, delivered, current hospitalization (Acute) (spontaneous vaginal delivery) (Acute) 39 weeks gestation of (Acute) This is a 24 year-old, G [4], P [2112], PPD#1 s/p with shoulder dystocia doing well. -Reviewed shoulder dystocia occurrence, risk factors, role of maneuvers. Patient questions answered to her satisfaction. -Rh negative, infant Rh pos - for Rhogam -Routine care -Smoking cessation advised, pt declines nicotine replacement therapy -Will d/c later today
--- NOTE | 2019-12-04 10:08 | DCINST_ITS ---
Discharge Diet: No Restrictions Discharge Activity: Return to Normal Activity, May Shower, May Take a Tub Bath May resume sexual activity in: 4-6 weeks Lifting Restrictions: 10-20 lb Suture Line Care: Avoid Pulling/Pushing Cleanse incision/area with: Soap & Water Additional Instructions: If you experience any of the following, contact your healthcare provider. * Bleeding that soaks a pad every hour for 2 hours * Fever 100.4 or higher * Unrelieved incision or abdominal pain * Swelling, redness, discharge or bleeding from your incision or episiotomy site * Your incision begins to separate * Problems urinating (including inability to urinate or burning while urinating). * Visual changes * Severe headache * Flu-like symptoms * Pain or redness in one of both of your breasts * Pain, warmth, tenderness or swelling in your legs, especially the calf area * Frequent nausea and vomiting * Symptoms of depression or anxiety If you experience any of the following, call 911 or go to the nearest Emergency Room. * Chest pain * Problems breathing * Seizure activity * Partial or complete paralysis of a body part, slurred speech, weakness or drooping of the face, or a sudden inability to walk or hold your balance Allergies/Adverse Reactions: Allergies Iodine and Iodide Containing Produc Allergy (Verified 10/26/19 16:59) Swelling shellfish derived Allergy (Verified 10/26/19 16:59) Anaphylaxis Medications to take at Discharge Vits [Prenatabs FA ] 1 tab PO QHS 07/06/17 Ibuprofen [Motrin] 600 mg PO Q8H PRN PRN #30 tab 12/04/19 The following prescriptions were given: Ibuprofen [Motrin] 600 mg PO Q8H PRN PRN #30 tab PRN Reason: Pain Score 1-06/30 Transmission Status: [id number] Please Follow Up With: Ricardo Christy MD When: 2 weeks Primary Care Physician: Care Physician,No Primary [Primary Care Provider] - Test Results: Test results from this visit will be discussed in further detail at your follow- up appointment, if applicable.
--- NOTE | 2019-12-04 10:08 | PCM.DCVAG ---
Discharge Diet: No Restrictions Discharge Activity: Return to Normal Activity, May Shower, May Take a Tub Bath May resume sexual activity in: 4-6 weeks Lifting Restrictions: 10-20 lb Suture Line Care: Avoid Pulling/Pushing Cleanse incision/area with: Soap & Water Additional Instructions: If you experience any of the following, contact your healthcare provider. Bleeding that soaks a pad every hour for 2 hours Fever 100.4 or higher Unrelieved incision or abdominal pain Swelling, redness, discharge or bleeding from your incision or episiotomy site Your incision begins to separate Problems urinating (including inability to urinate or burning while urinating). Visual changes Severe headache Flu-like symptoms Pain or redness in one of both of your breasts Pain, warmth, tenderness or swelling in your legs, especially the calf area Frequent nausea and vomiting Symptoms of depression or anxiety If you experience any of the following, call 911 or go to the nearest Emergency Room. Chest pain Problems breathing Seizure activity Partial or complete paralysis of a body part, slurred speech, weakness or drooping of the face, or a sudden inability to walk or hold your balance Allergies/Adverse Reactions: Allergies Iodine and Iodide Containing Produc Allergy (Verified 10/26/19 16:59) Swelling shellfish derived Allergy (Verified 10/26/19 16:59) Anaphylaxis Medications to take at Discharge Vits [Prenatabs FA ] 1 tab PO QHS 07/06/17 Ibuprofen [Motrin] 600 mg PO Q8H PRN PRN #30 tab 12/04/19 The following prescriptions were given: Ibuprofen [Motrin] 600 mg PO Q8H PRN PRN #30 tab PRN Reason: Pain Score 1-10/10 Transmission Status: [id number] Please Follow Up With: Ricardo Christy MD When: 2 weeks Primary Care Physician: Care Physician,No Primary [Primary Care Provider] - Test Results: Test results from this visit will be discussed in further detail at your follow-up appointment, if applicable.
--- NOTE | 2019-12-04 10:10 | DS.PCM_ITS ---
Discharge Date and Diagnosis - Problem List Patient Problems: Active and Suspected Problems (Last Updated 12/03/19 @ 10:[address] Kamini Skelton MD) Shoulder dystocia, delivered, current hospitalization (Acute) (spontaneous vaginal delivery) (Acute) 39 weeks gestation of (Acute) Date of Admission: 12/03/19 Date of Discharge: 12/04/19 - Primary Discharge Diagnosis Active and Suspected Problems (Last Updated 12/03/19 @ 10:[address] Kamini Skelton MD) Shoulder dystocia, delivered, current hospitalization (Acute) (spontaneous vaginal delivery) (Acute) 39 weeks gestation of (Acute) Hospital Course and Treatment Operations: None Procedures: None Summary of Care Provided: The patient is a 24 year old F admitted at 39+ wga for elective induction of labor. She had an complicated by shoulder dystocia of 9lb8oz infant. Her course was unremarkable and she was discharged to home on day #1. Patient Problems: Active and Suspected Problems (Last Updated 12/03/19 @ 10:[address] Kamini Skelton MD) Shoulder dystocia, delivered, current hospitalization (Acute) (spontaneous vaginal delivery) (Acute) 39 weeks gestation of (Acute) - Physical Exam Vitals/I&O's: Vital Signs Temp Pulse Resp BP Pulse Ox 98.1 F 77 18 106/48 L 100 12/04/19 09:30 12/04/19 09:30 12/04/19 09:30 12/04/19 09:30 12/04/19 04:00 Oxygen Delivery Method Room Air Weight: 75.8 kg Body Mass Index (BMI) 27.8 Intake and Output for Last 24 Hours 12/02/19 12/03/19 12/04/19 23:59 23:59 23:59 Intake Total 1125.94 / 1125.94 Balance 1125.94 / 1125.94 Laboratory Results 12/03/19 17:10: Screen NEGATIVE, Baby's Blood Type O POSITIVE, Baby's RADHA NEGATIVE Current Medications Acetaminophen (Tylenol) 1,000 mg PO Q8H PRN PRN PRN Reason: Pain Score 1-10/10 Last Admin: 12/04/19 04:07 Dose: 1,000 mg Documented by: Bisacodyl (Dulcolax) 10 mg RECTAL UD PRN PRN Reason: If no BM Dibucaine (Dibucaine) 1 applic TOPICAL TID PRN PRN; Protocol PRN Reason: Discomfort Last Admin: 12/03/19 16:52 Dose: 1 applicatio Documented by: Hydrocortisone (Hytone) 1 applic TOPICAL TID PRN PRN; Protocol PRN Reason: Discomfort Last Admin: 12/03/19 16:53 Dose: 1 applicatio Documented by: Ibuprofen (Motrin) 600 mg PO Q6H PRN PRN PRN Reason: Pain Score 1-10/10 Last Admin: 12/03/19 23:32 Dose: 600 mg Documented by: Methylergonovine Maleate (Methergine) 0.2 mg IM X1 PRN PRN Reason: Excess bleeding/uterine atony Ondansetron HCl (Zofran) 4 mg IV Q4H PRN PRN PRN Reason: NAUSEA Multivit/Folic Acid/Iron (Prenatabs Fa) 1 tablet PO QHS [facility] Last Admin: 12/03/19 23:04 Dose: 1 tablet Documented by: Senna/Docusate Sodium (Senokot-S, Latoya-Colace) 1 - 2 tablet PO DAILY PRN PRN PRN Reason: Constipation Simethicone (Mylicon) 80 mg PO PCHS PRN PRN Reason: Indigestion/Stomach pain Sodium Chloride () 5 - 15 ml IV UD PRN PRN Reason: SALINE FLUSH Discharge Diet: No Restrictions Discharge Activity: Return to Normal Activity, May Shower, May Take a Tub Bath May resume sexual activity in: 4-6 weeks Suture Line Care: Avoid Pulling/Pushing Cleanse incision/area with: Soap & Water Home Medications: Medications to take at Discharge Vits [Prenatabs FA ] 1 tab PO QHS 07/06/17 Ibuprofen [Motrin] 600 mg PO Q8H PRN PRN #30 tab 12/04/19 Following Prescrptions Were Given to Patient: Ibuprofen [Motrin] 600 mg PO Q8H PRN PRN #30 tab PRN Reason: Pain Score 1-10/10 Transmission Status: [id number] Primary Care Physician: Care Physician,No Primary [Primary Care Provider] - Please Follow Up With: Ricardo Christy MD Medical Necessity - Tobacco Use Smoking Status: Current every day smoker Meaningful Use Info Meaningful Use Diagnoses (Choose all that apply): None applicable
[2019-12-04 12:00] VITALS: BP 114/68; PULSE 62; RESP 18; TEMP 36.7
[2019-12-04 16:28] VITALS: BP 128/80; PULSE 69; RESP 18; TEMP 36.7
== END 2019-12-04 16:57 | disposition home or self-care (01) | DRG 807 ==
PROVIDERS: Admitting Provider Obstetrics & Gynecology; Referring Provider Obstetrics & Gynecology; Visit Provider Obstetrics & Gynecology
DX: O66.0 Obstructed labor due to shoulder dystocia (principal); Z37.0 Single live birth; O99.334 Smoking (tobacco) complicating childbirth; O99.824 Streptococcus B carrier state complicating childbirth; Z3A.39 39 weeks gestation of pregnancy; F17.210 Nicotine dependence, cigarettes, uncomplicated
CPT/HCPCS: 59050; 85025; 85461; 86850; 86900; 86901; 90384; 99218; J7120; G0378; J2790

== ENCOUNTER 2019-12-11 21:22 | Emergency (ER) | payer OTHER, SELFPAY ==
[2019-12-03 07:31] VITALS: BMI 27.8
[2019-12-11 21:23] VITALS: BP 119/83; PULSE 103; RESP 15; TEMP 36.8; BMI 24.6
--- NOTE | 2019-12-11 21:43 | CT_ITS ---
STUDY: CT ABDOMEN AND PELVIS WITHOUT CONTRAST REASON FOR EXAM: Female, 24 years old. 8 DAYS /VAGINAL BLEEDING/RLQ PAIN TODAY. Pt has swelling allergy to iodine, was given premeds and did fine with injection. Delays included RADIATION DOSAGE (If Supplied By Facility): CTDIvol = ( 10.70 ) mGy, DLP = ( 871.94 ) mGycm TECHNIQUE: Transaxial images were obtained from the dome of the diaphragm to the symphysis pubis without oral contrast, and without intravenous contrast. Sagittal and coronal images were reconstructed. Individualized dose optimization techniques were used for this CT. COMPARISON: None. FINDINGS: The visualized lung bases are unremarkable. The visualized portions of the heart are within normal limits. Normal liver. Normal gallbladder and extrahepatic biliary system. Normal spleen. Normal pancreas. Normal bilateral adrenal glands. Mild right hydronephrosis. No radiodense ureterolithiasis noted. There is moderate hydroureter noted on the right. Normal left kidney. Normal visualized stomach. Normal small intestine. Increased stool throughout the colon. Appendix is normal. Normal abdominal aorta. Normal inferior vena cava. Normal retroperitoneum. Retroaortic left renal vein. Normal urinary bladder. Uterus is enlarged and heterogeneous. The endometrial cavity is filled with fluid. Normal abdominal wall. Normal osseous structures. CT/Abdomen/Pelvis W IV Cont ONLY IMPRESSION: Mild right hydronephrosis. Enlarged heterogeneous uterus. Increased stool. Electronically Signed: Zoltan Simons MD at 23:45 EDT , Service support ,
[2019-12-11] MEDS: 0.9% Normal Saline 1,000 ML 1000 ML IV (22:05)
[2019-12-11] MEDS: Ondansetron 4 MG/2 ML Vial IV (22:06)
[2019-12-11] MEDS: Morphine 4 MG/ML Syringe IV (22:06)
[2019-12-11] MEDS: DiphenhydrAMINE 50 MG/ML Syringe IV (22:13)
[2019-12-11] MEDS: MethylPREDNISolone 125 MG/2 ML Vial IV (22:13)
[2019-12-11 22:19] LABS: Absolute Lymphocyte Count 4.32 X10^3/uL (0.83-4.51); Absolute Neutrophil Count 13.1 X10^3/uL (2.0-7.7); Basophil% 0.5 % (0-1); Eosinophil# 0.32 X10^3/uL; Eosinophils% 1.7 % (0-5); Hematocrit 42.8 % (37-47); Hemoglobin 14.7 g/dL (12.0-15.0); Lymphocyte # 4.32 X10^3/ul (4.0); Lymphocyte % 22.4 % (19-41); Mean Corp Hgb Conc 34.3 g/dL (32-36); Mean Corpuscular Hgb 32.8 pg (27.0-32.0); Mean Corpuscular Volume 95.5 fL (81-99); Mean Platelet Vol. 9.2 fl (6.2-12.0); Monocyte# 1.29 X10^3/uL; Monocyte% 6.7 % (0-10); NRBC Flagged by Analyzer 0 % (0-5); Neutrophil # 13.14 X10^3/uL (2.7-7.7); Neutrophil % 68.2 % (47-70); POSITIVE MORPHOLOGY YES; Platelet Count 494 K/mm3 (150-450); RBC Distribution Width CV 12.3 % (11.6-14.6); Red Blood Count 4.48 M/mm3 (4.2-5.4); White Blood Count 19.3 K/mm3 (4.4-11.0)
[2019-12-11 22:24] LABS: Differential Indicated SCAN CRITERIA MET
[2019-12-11 22:25] LABS: Anion Gap 8 (5-15); BUN 18 mg/dL (7-18); BUN/Creat Ratio 20.7 RATIO (10-20); Calcium,Total 8.9 mg/dL (8.5-10.1); Chloride 107 mmol/L (98-107); Creatinine, Serum 0.87 mg/dL (0.55-1.02); EST Glomerular Filtration Rate 84 mL/min (>60); Est Glom Filt Rate - Afr Amer 102 mL/min (>60); Estimated Creatinine Clearance 88.95 ml/min; Glucose 84 mg/dL (74-106); Potassium 4.1 mmol/L (3.5-5.1); Sodium Level 138 mmol/L (136-145)
[2019-12-11 23:20] LABS: Differential Comment SCANNED; Red Cell Morphology NORM C+C NORMAL (NORM C&C)
[2019-12-11 23:22] LABS: Platelet Estimate SLT INC (ADEQ)
--- NOTE | 2019-12-12 00:06 | ED.VISSUMM ---
- ER Visit Summary Date of Service: 12/12/19 Chief Complaint: Vaginal bleed History of Present Illness: The patient is a 24 F with vaginal bleeding that is increasing from her vaginal delivery 8 days ago. She is using 2 pads every 3 hours. She also reports colic pain and right lower quadrant pain which is new. Denies fevers or discharge. Physical Examination: Afebrile and vital signs unremarkable except for heart rate of 103. Suprapubic and right lower quadrant tenderness on exam. Pelvic exam was chaperoned by Gigi. There is serosanguineous drainage and she has diffuse tenderness. Skin unremarkable. Test Results: White count 19.3 and platelets 494. CHEM panel normal. CT shows mild right hydronephrosis and an enlarged heterogenous uterus. Emergency Department Course and Treatment: Patient received pain medicine and Zofran. She was pretreated with Solu-Medrol and Benadryl prior to CT. Results were discussed with Dr. Christy. Patient was agreeable to outpatient follow-up tomorrow in the office. He is in the office. He advised treatment with Rocephin 250 mg IM and Keflex 500 mg 4 times a day for 7 days. Return for fevers, otherwise follow-up tomorrow. Patient was in agreement. Treatment Plan: As above Disposition: Discharge Impression: Pelvic pain, leukocytosis This note was generated with [employer] M[employer] dictation software. It may contain incorrect words, spelling, and punctuation that were not noted in review of the chart prior to signing ED Disposition - Plan for ED Patient: [facility] [Primary Care Provider] -
--- NOTE | 2019-12-12 00:08 | ED.DEP ---
ED Disposition - Plan for ED Patient: Instructions: PELVIC PAIN, Unknown Cause Prescriptions: Cephalexin [Keflex] 500 mg PO Q6 #28 cap Prescription Printed Oxycodone HCl/Acetaminophen [Percocet 5/325] 1 tab PO Q6H PRN PRN 2 Days #8 tab PRN Reason: Pain Prescription Printed Referrals: Ricardo Christy MD [STAFF PHYSICIAN] - Additional Instructions: Call the office in the morning tomorrow to be seen tomorrow per Dr. Christy
[2019-12-12] MEDS: Ceftriaxone 500 MG Vial 250 MG IM (00:21)
[2019-12-12 00:26] VITALS: BP 112/65; PULSE 77; RESP 16; O2SAT 98
== END 2019-12-12 00:43 | disposition home or self-care (01) ==
PROVIDERS: Emergency Provider Emergency Medicine
DX: R10.2 Pelvic and perineal pain (principal); D72.829 Elevated white blood cell count, unspecified; F17.220 Nicotine dependence, chewing tobacco, uncomplicated
CPT/HCPCS: 74177; 80048; 85025; 96361; 96372; 96374; 96375; 99283; J7030; J7050; Q9967; A4216; J2405

== ENCOUNTER → 2020-01-16 17:28 | Outpatient (CLI) | payer OTHER, SELFPAY ==
[2020-01-18 14:38] LABS: HPV Reflexed? NOT INDICATED
== END ==
PROVIDERS: Visit Provider Obstetrics & Gynecology
DX: Z12.4 Encounter for screening for malignant neoplasm of cervix (principal)
CPT/HCPCS: 88175; G0145

== ENCOUNTER 2023-06-01 09:28 | Observation (INO) | payer OTHER, SELFPAY ==
[2023-06-01 09:29] VITALS: BP 116/75; PULSE 63; RESP 20; TEMP 36.6; O2SAT 100; BMI 21.4
--- NOTE | 2023-06-01 09:56 | US_ITS ---
STUDY: ABDOMINAL ULTRASOUND - RIGHT UPPER QUADRANT REASON FOR VISIT: Female, 27 years old right upper quadrant pain. TECHNIQUE: Ultrasound evaluation of the right upper quadrant was performed with real-time and static musa-scale imaging. TECHNICAL QUALITY: Adequate. COMPARISON: None. FINDINGS: Liver: The liver measures 17.3 cm. There is normal echogenicity of the liver. The bile ducts are within normal limits. There is hepatic color flow. The direction of portal flow is hepatopetal. There is no demonstrated mass lesion. Gallbladder: Normal distended gallbladder. The gallbladder wall is thickened and measures 11 mm. There is a positive sonographic Orozco''s sign. There is pericholecystic fluid. There are no gallstones. Common Bile Duct (C.B.D.): The common bile duct measures 2 mm. Pancreas: Normal size of the head, body and tail of the pancreas. There is normal echogenicity of the pancreas. There is no demonstrated pancreatic mass or cyst. Right Kidney: Normal size of the right kidney. The right kidney measures 12.9 cm x 5.5 cm x 4.1 cm. Normal renal cortex. The right cortex measures 1.2 cm. There is no demonstrated renal mass or cyst. There is mild hydronephrosis of the right kidney. US/Gallbladder IMPRESSION: Thickened gallbladder wall with pericholecystic fluid. Positive sonographic Orozco sign. Mild right hydronephrosis. Electronically Signed: Cristian Langston MD at 12:07 EDT ,
--- NOTE | 2023-06-01 09:57 | ED.VIS.GI ---
HPI HPI - GI History of Present Illness Chief Complaint: Abd Pain Detail of Chief Complaint: Abdominal pain Informant: patient Narrative Narrative: Patient presents with abdominal pain as her yesterday. Currently rates her pain a 5 out of 10. Pain worse with certain movements or coughing or deep breath. Describes the pain as sharp in the right upper quadrant. Food does not seem to affect it and she did eat pizza last night. She had no vomiting or diarrhea. She denies any blood in her stool or black tarry stool. She is never had pain like this before. She denies urinary symptoms. She just finished her menstrual period this morning. [facility] Medical History (Updated 06/01/23 @ 15:[address] Ashutosh Stone, ) Anxiety and depression Vitiligo Home Medications NK 06/01/23 [History Last Taken Unknown] Allergy/AdvReac Type Severity Reaction Status Date / Time Iodine and Iodide Containing Allergy Swelling Verified 06/01/23 09:51 Produc shellfish derived Allergy Anaphylaxis Verified 06/01/23 09:51 Surgical History H/O dilation and curettage Social History Smoking Status: Current every day smoker tobacco type: cigarettes ROS ROS ED Review of Systems ROS Unobtainable: other Constitutional Constitutional ED: Reports lethargy; Denies chills, fever(s), sweats or weight loss Eyes Eyes: Denies blurry vision, change in vision or diplopia ENT ENT ED: Denies rhinorrhea or sore throat Cardiovascular Cardiovascular: Denies chest pain, orthopnea or racing heartbeat Respiratory/Chest Respiratory/Chest: Denies cough, dyspnea, dyspnea on exertion, orthopnea or sputum Gastrointestinal Gastrointestinal: Reports abdominal pain; Denies diarrhea, nausea or vomiting Genitourinary Genitourinary ED: Denies dysuria, hematuria or urinary frequency Musculoskeletal Musculoskeletal: Denies arthralgias, back pain, myalgias or neck pain Integumentary Denies abscess, Abrasions or rash Neurologic Neurologic: Denies headache(s) or weakness Psychiatric Psychiatric: Denies anxiety, depression or suicidal thoughts Endocrine Endocrinology: Denies polydipsia, polyphagia or polyuria Hematologic/Lymphatic Hematologic/Lymphatic: Denies easy bleeding, easy bruising or lymphadenopathy Allergic/Immunologic Allergic/Immunologic ED: Denies mouth swelling, tongue swelling or urticaria EXAM Physical Exam Const Vital Signs: 06/01/23 09:29 06/01/23 15:46 06/01/23 12:30 Temperature 97.8 F 98.7 F Temperature Source Temporal Oral Pulse Rate 63 51 L 65 Respiratory Rate 20 H 16 Blood Pressure 116/75 116/78 94/69 Blood Pressure Mean 88 90 77 Pulse Ox 100 99 Oxygen Delivery Method Room Air Room Air 06/01/23 13:30 Temperature Temperature Source Pulse Rate 41 L Respiratory Rate Blood Pressure 112/99 H Blood Pressure Mean 103 Pulse Ox Oxygen Delivery Method Positive well nourished and well developed General Appearance ED: well developed and NAD HEENT Reports TM's clear and moist mucous membranes normocephalic and atraumatic; Negative for trauma or tenderness Tympanic Membrane ED: Yes TM's clear Eyes PERRL and EOMs intact bilaterally General Eye ED: Negative for pale conjunctiva or scleral icterus Neck no lymphadenopathy, supple and no JVD General: Negative for tenderness Chest Wall inspection of chest normal and palpation of chest normal Chest: Negative for tenderness Resp normal respiratory effort and clear to auscultation bilaterally Effort and Inspection: Negative for respiratory distress or pain with movement Auscultation: Negative for rhonchi, wheezes or diminished lung sounds Cardio regular rate, regular rhythm, S1 normal heart sound, S2 normal heart sound and no murmurs Peripheral Pulses: pulses 2+ throughout GI normal to inspection, nondistended, normoactive bowel sounds, soft to palpation, non-distended and no masses GI Narrative: Tenderness palpation over right upper quadrant with guarding. Positive Orozco sign. No rebound or rigidity. No masses palpated. Back/Spine no CVA tenderness and no thoracic nor lumbar tenderness Extremity normal to inspection General Extremety ED: Negative for edema General Extremity: Negative for edema Neuro oriented x3, CN's II-XII intact bilaterally, no sensory deficits noted and gait normal Sensorium / Orientation: awake, alert, oriented to person, oriented to place and oriented to time Motor Exam: strength 5/5 throughout and strength abnormal Psych mental status grossly normal Skin no rashes or lesions noted and no wounds MDM MDM MDM Narrative Medical decision making narrative: Patient presents with abdominal pain to the right upper quadrant since yesterday. Denies any injury or trauma. Food does not seem to affect her pain. In the differential would be gallbladder disease versus kidney stone versus inflammatory bowel disease or peptic ulcer disease. IV line established. She was medicated with morphine and Zofran. Patient initially did not want thing for pain but once we decided to admit her as she had ongoing pain without significant etiology found she was willing to accept some pain medication. CBC with differential showed a normal white count. Chemistries and LFTs were normal. Urinalysis was unremarkable. Lactate was normal. Gallbladder ultrasound initially obtained showed gallbladder wall thickening and pericholecystic fluid with no evidence of gallstones. Discussed case with general surgeon on-call Dr. Gonzalez who recommended obtaining a CT scan with IV and p.o. contrast. Patient does have allergy to shellfish and so that she was premedicated with Solu-Medrol and Benadryl and had a CT scan of the abdomen pelvis with IV contrast that showed small amount of fluid in the pelvis and then pericholecystic fluid with edematous changes seen in the portal triad suggestive of possible inflammatory change within the liver. This point etiology of her pain unclear. I did discuss with her if she has had any abnormal vaginal discharge which she denies. She is monogamous and . She denies any pelvic pain. General surgeon recommended admission to medicine for MRCP and will be seen by surgery and medicine. Lab Data Labs: Laboratory Results - last 24 hr 06/01/23 06/01/23 10:07 10:50 WBC 6.4 RBC 4.17 L Hgb 13.2 Hct 39.2 MCV 94.0 MCH 31.7 MCHC 33.7 RDW Std Deviation 44.9 H RDW Coeff of Yamilet 12.9 Plt Count 296 MPV 9.4 Immature Gran % (Auto) 0.200 Neut % (Auto) 58.3 Lymph % (Auto) 29.8 [place] % (Auto) 8.1 Eos % (Auto) 2.5 Baso % (Auto) 1.1 H Absolute Neuts (auto) 3.8 Absolute Lymphs (auto) 1.91 Nucleated RBC % 0 Sodium 141 Potassium 4.0 Chloride 111 H Carbon Dioxide 27.0 Anion Gap 3 L BUN 11 Creatinine 0.88 Estim Creat Clear Calc 85.64 Est GFR (MDRD) Af Amer 99 Est GFR (MDRD) Non-Af 81 BUN/Creatinine Ratio 12.6 Glucose 70 L Lactic Acid 1.2 Calcium 8.8 Total Bilirubin 0.50 AST 17 ALT 30 Alkaline Phosphatase 48 Total Protein 7.4 Albumin 3.8 Globulin 3.6 Albumin/Globulin Ratio 1.1 Lipase 27 Serum , Qual NEGATIVE Urine Color Yellow Urine Clarity Sl. Cloudy Urine pH 7.0 Ur Specific [place] 1.010 Urine Protein Negative Urine Glucose (UA) Normal Urine Ketones Negative Urine Occult Blood Negative Urine Nitrite Negative Urine Bilirubin Negative Urine Urobilinogen Normal Ur Leukocyte Esterase Negative Urine RBC 0 SEEN Urine WBC 0 SEEN Ur Squamous Epith Cells 0-5 SEEN Urine Bacteria 1+ Urine Mucus 0 SEEN Radiography Diagnostic Testing: Clinical Impression(s) from Imaging Studies Abdomen/Pelvis CT 06/01/23 12:46 IMPRESSION: Pericholecystic fluid. Free fluid in the pelvis. Edematous changes seen in the portal triad suggestive of possible inflammatory change within the liver. Electronically Signed: Cristian Langston MD at 15:11 EDT , Discharge Plan Dx/Rx/DC Orders Clinical Impression: Abdominal pain Disposition Disposition: Acute Care Hospital [facility]
[2023-06-01] MEDS: 0.9% Normal Saline (1000mL) 1,000 ML 125 ML IV ×2 (10:12→18:53)
[2023-06-01 10:22] LABS: Absolute Lymphocyte Count 1.91 X10^3/uL (0.83-4.51); Absolute Neutrophil Count 3.8 X10^3/uL (2.0-7.7); Basophil# 0.07 X10^3/uL; Basophil% 1.1 % (0-1); Eosinophil# 0.16 X10^3/uL; Eosinophils% 2.5 % (0-5); Hematocrit 39.2 % (37-47); Hemoglobin 13.2 g/dL (12.0-15.0); Lymphocyte # 1.91 X10^3/ul (0.83-4.51); Lymphocyte % 29.8 % (19-41); Mean Corp Hgb Conc 33.7 g/dL (32-36); Mean Corpuscular Hgb 31.7 pg (27.0-32.0); Mean Platelet Vol. 9.4 fl (6.2-12.0); Monocyte# 0.52 X10^3/uL; Monocyte% 8.1 % (0-10); NRBC Flagged by Analyzer 0 % (0-5); Neutrophil # 3.75 X10^3/uL (2.7-7.7); Neutrophil % 58.3 % (47-70); Platelet Count 296 K/mm3 (150-450); RBC Distribution Width CV 12.9 % (11.6-14.6); RBC Distribution Width SD 44.9 fl (35.1-43.9); Red Blood Count 4.17 M/mm3 (4.2-5.4); White Blood Count 6.4 K/mm3 (4.4-11.0)
[2023-06-01 10:33] LABS: Internal QC Validated? YES +Cl - CLEAR BKGD; Pregnancy, Serum, hCG Quali. NEGATIVE Negative
[2023-06-01 10:46] LABS: ALB/GLOB Ratio 1.1 RATIO (0.9-2.4); AST(SGOT) 17 U/L (15-37); Alanine Aminotransfer ALT/SGPT 30 U/L (13-56); Albumin, Serum 3.8 g/dL (3.2-5.0); Alkaline Phosphatase 48 U/L (45-117); Anion Gap 3 (5-15); BUN 11 mg/dL (7-18); BUN/Creat Ratio 12.6 RATIO (10-20); Calcium,Total 8.8 mg/dL (8.5-10.1); Chloride 111 mmol/L (98-107); Creatinine, Serum 0.88 mg/dL (0.55-1.02); EST Glomerular Filtration Rate 81 mL/min (>60); Est Glom Filt Rate - Afr Amer 99 mL/min (>60); Estimated Creatinine Clearance 85.64 ml/min; Globulin 3.6 g/dL (2.2-4.2); Glucose 70 mg/dL (74-106); Lipase 27 U/L (13-75); Protein, Total 7.4 g/dL (6.4-8.2); Sodium Level 141 mmol/L (136-145)
[2023-06-01 10:56] LABS: Lactic Acid 1.2 mmol/L (0.4-1.9)
[2023-06-01 11:11] LABS: Mucous, Urine 0 SEEN /hpf (<or=2+); Red Blood Cells-Urine 0 SEEN /hpf (0-5); White Blood Cells 0 SEEN /hpf (0-5)
[2023-06-01 11:13] LABS: Color, Urine Yellow (Yellow); Glucose, Dipstick Normal (Normal); Ketone-Dipstick Negative (Negative); Leukocyte Esterase-Dipstick Negative /ul (Negative); Nitrite-Dipstick Negative (Negative); Occult Blood-Urine Negative /ul (Negative); Protein-Dipstick Negative (Negative); Urine Bilirubin Dipstick Negative (Negative); Urine Clarity Sl. Cloudy (Clear); Urine Urobilinogen Normal (Normal)
[2023-06-01 11:20] LABS: Bacteria 1+ /hpf (None Seen); Squamous Epithelial Cells - UA 0-5 SEEN /hpf (5-10)
[2023-06-01 12:30] VITALS: BP 94/69; PULSE 65
--- NOTE | 2023-06-01 12:46 | CT_ITS ---
STUDY: CT ABDOMEN AND PELVIS WITH CONTRAST REASON FOR EXAM: Female, 27 years old. RUQ pain since yesterday, RADIATION DOSAGE (If Supplied By Facility): CTDIvol = ( 13.36 ) mGy, DLP = ( 371.72 ) mGycm TECHNIQUE: Transaxial images were obtained from the dome of the diaphragm to the symphysis pubis with oral contrast. Oral and amp; IV Gastrografin and amp; 100mL Isovue-370 was administered. Sagittal and coronal images were reconstructed. Individualized dose optimization techniques were used for this CT. COMPARISON: Comparison is made with prior study dated December 10, 2021. FINDINGS: The visualized lung bases are unremarkable. The visualized portions of the heart are within normal limits. Edema of the portal triads suggestive of possible inflammatory process. Moderate amount of pericholecystic fluid. No definite gallstones are seen. Normal pancreas and spleen. Normal bilateral adrenal glands. Normal right kidney. Normal left kidney. Normal visualized stomach. Normal small intestine. Normal colon. The appendix is visualized and appears normal. Normal abdominal aorta. Normal inferior vena cava. Normal retroperitoneum. Normal urinary bladder. Small amount of free fluid is seen in the pelvis. Follicles are seen in both ovaries. Normal abdominal wall. Normal osseous structures. CT/Abdomen/Pelvis WITH Contrast IMPRESSION: Pericholecystic fluid. Free fluid in the pelvis. Edematous changes seen in the portal triad suggestive of possible inflammatory change within the liver. Electronically Signed: Cristian Langston MD at 15:11 EDT ,
[2023-06-01] MEDS: DiphenhydrAMINE 50 MG/ML Syringe IV (13:00)
[2023-06-01] MEDS: MethylPREDNISolone 125 MG/2 ML Vial IV (13:00)
[2023-06-01 13:30] VITALS: BP 112/99; PULSE 41
--- NOTE | 2023-06-01 15:43 | NURSING ---
DR SUAZO FOR DR GAN
[2023-06-01 15:46] VITALS: BP 116/78; PULSE 51; RESP 16; TEMP 37.1; O2SAT 99
--- NOTE | 2023-06-01 15:50 | NURSING ---
MED SURG OBS [facility] PAIN
[2023-06-01] MEDS: Ondansetron 4 MG/2 ML Vial IV (15:55)
[2023-06-01] MEDS: Morphine 4 MG/ML Syringe IV (15:57)
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
--- NOTE | 2023-06-01 16:21 | NURSING ---
CALLED [facility], TALKED TO MARY. GAVE HIM ALL THE INFO AND HE SAID A [employer] WILL FOLLOW UP.
--- NOTE | 2023-06-01 16:33 | MRI_ITS ---
INDICATION: abdominal pain EXAMINATION: MRI - MR MRCP W/O Contrast TECHNIQUE: Multiplanar and multisequence MR images of the abdomen were obtained with MRCP sequence. Three-dimensional post-processing reconstructions were performed. IV Contrast Dosage and Agent: None. COMPARISON: FINDINGS: LIVER: No mass. Normal morphology. GALLBLADDER AND BILIARY TREE: Significant wall thickening of the gallbladder. The CBD is not dilated . No intra- or extrahepatic biliary dilation. No choledochal filling defect. PANCREAS: No mass. No pancreatic duct dilation. SPLEEN: Non-enlarged. ADRENAL GLANDS: No nodules. KIDNEYS: Normal renal size and position. No hydronephrosis. No mass. MRI/MRCP Abdomen without Contrast IMPRESSION: There is edematous thickened gallbladder wall. No evidence of cholelithiasis or biliary dilatation. No choledocholithiasis. Electronically Signed: Josue Reulas DO at 19:24 EDT ,
[2023-06-01 17:00] VITALS: BP 121/74; PULSE 46; RESP 16; O2SAT 98
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
[2023-06-01 18:37] VITALS: BMI 21.4
[2023-06-01 18:50] VITALS: BP 115/66; PULSE 43; RESP 18; TEMP 36.8; O2SAT 98
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
[2023-06-01] MEDS: oxyCODONE 5 MG Tablet 10 MG PO (20:29)
[2023-06-02 03:04] VITALS: BP 108/50; PULSE 48; RESP 16; TEMP 36.6; O2SAT 98
[2023-06-02] MEDS: 0.9% Normal Saline (1000mL) 1,000 ML 125 ML IV (04:57)
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
[2023-06-02 07:15] LABS: Absolute Lymphocyte Count 1.96 X10^3/uL (0.83-4.51); Absolute Neutrophil Count 8.9 X10^3/uL (2.0-7.7); Basophil# 0.03 X10^3/uL; Basophil% 0.3 % (0-1); Eosinophil# 0.01 X10^3/uL; Eosinophils% 0.1 % (0-5); Hematocrit 36.6 % (37-47); Hemoglobin 11.9 g/dL (12.0-15.0); Lymphocyte # 1.96 X10^3/ul (0.83-4.51); Lymphocyte % 16.6 % (19-41); Mean Corp Hgb Conc 32.5 g/dL (32-36); Mean Corpuscular Hgb 31.2 pg (27.0-32.0); Mean Corpuscular Volume 95.8 fL (81-99); Mean Platelet Vol. 9.6 fl (6.2-12.0); Monocyte# 0.78 X10^3/uL; Monocyte% 6.6 % (0-10); NRBC Flagged by Analyzer 0 % (0-5); Neutrophil # 8.94 X10^3/uL (2.7-7.7); Neutrophil % 75.5 % (47-70); Platelet Count 298 K/mm3 (150-450); RBC Distribution Width CV 12.8 % (11.6-14.6); RBC Distribution Width SD 44.9 fl (35.1-43.9); Red Blood Count 3.82 M/mm3 (4.2-5.4); White Blood Count 11.8 K/mm3 (4.4-11.0)
[2023-06-02 07:44] VITALS: BP 108/71; PULSE 44; RESP 14; TEMP 36.8; O2SAT 100
[2023-06-02 07:56] LABS: Anion Gap 4 (5-15); BUN 10 mg/dL (7-18); BUN/Creat Ratio 12.6 RATIO (10-20); Chloride 114 mmol/L (98-107); Creatinine, Serum 0.79 mg/dL (0.55-1.02); EST Glomerular Filtration Rate 92 mL/min (>60); Est Glom Filt Rate - Afr Amer 111 mL/min (>60); Glucose 110 mg/dL (74-106); Potassium 4.4 mmol/L (3.5-5.1); Sodium Level 143 mmol/L (136-145)
--- NOTE | 2023-06-02 10:49 | PCM.DC ---
Discharge Instructions Diet Discharge Diet: No restrictions Activity Discharge Activity: Return to Normal Activity Return to work on:: 06/03/23 Lifting Restrictions: 10 lbs Dressing / Incision Call your doctor if you observe: Fever of 101 or Higher, Shortness of breath, Dizziness, Fainting spells, Swelling in the ankles, Chest pain and Increased palpitations (irregular heartbeat) Follow Up Care Test Results: Test results from this visit will be discussed in further detail at your follow-up appointment, if applicable. Discharge Plan Admission Admit Date/Time: 06/01/23 16:20 Attending Provider: Leodan Mendoza Primary Care Provider: [facility],[place] Consulting Providers: Tanja Gonzalez; Kvng Meza Discharge Orders/Prescriptions Prescriptions: No Action NK Referrals / Follow Up: NOT,DEFINED [Non-Staff] - [facility] [Primary [facility] [place]] - Disposition Disposition (needs filled in before D/C Order can be placed): Home, Self Care
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
--- NOTE | 2023-06-02 15:58 | CASEMGMT ---
Updated Brittney at [place] that pt was dc'd home this date.
== END 2023-06-02 12:05 | disposition home or self-care (01) ==
LOC: ED 15:50 → MS3 16:42
PROVIDERS: Admitting Provider Internal Medicine; Emergency Provider Emergency Medicine; Visit Provider Family Medicine
DX: S30.1XXA Contusion of abdominal wall, initial encounter (principal); F17.210 Nicotine dependence, cigarettes, uncomplicated; R93.2 Abnormal findings on diagnostic imaging of liver and biliary tract; W51.XXXA Accidental striking against or bumped into by another person, initial encounter
CPT/HCPCS: 36415; 74177; 74181; 76705; 80048; 80053; 81001; 83605; 83690; 84703; 85025; 96361; 96374; 96375; 99221; 99283; 99406; J7030; Q9967; A4216; G0378; J2405

== ENCOUNTER 2024-06-28 21:12 | Emergency (ER) | payer OTHER, SELFPAY ==
[2024-06-28 21:13] VITALS: BP 134/87; PULSE 83; RESP 20; TEMP 36.6; O2SAT 100; BMI 20.3
--- NOTE | 2024-06-28 21:54 | US_ITS ---
EXAM: US abdomen, limited, right upper quadrant. HISTORY: PAIN TECHNIQUE: US Abdomen RUQ (limited) COMPARISON: Previous ultrasound of 06/01/2023. LIMITATIONS: None. LIVER Size: Elongated right hepatic lobe measuring 18.3 cm in length, as compared to 17.3 cm on the prior study. Masses: None. Contour: Normal. Echotexture: Normal. Bile ducts: Normal. Portal veins: Normal. Normal hepatopedal flow. The visualized hepatic veins are also patent. GALLBLADDER Size: Normal. Stones/sludge: None. Wall thickness: Borderline in thickness, measuring 3.4 mm in thickness; the gallbladder wall measured 11 mm in thickness on the prior study. Pericholecystic fluid: None. Pericholecystic fluid seen on the prior study has resolved. Sonographic Orozco sign: Negative. EXTRAHEPATIC BILE DUCTS: Normal. RIGHT KIDNEY: Normal size, measuring 12.3 cm in length. Mild fullness of the intrarenal collecting system, unchanged. ASCITES: None. PLEURAL EFFUSIONS: None. OTHER: Visualized pancreas is unremarkable. US/Gallbladder IMPRESSION: No gallstones, findings of acute cholecystitis or biliary ductal dilatation identified. Gallbladder wall thickening and pericholecystic fluid seen on the prior study of 2022 have resolved. Electronically Signed: Kit Shannon MD at 23:13 EDT ,
--- NOTE | 2024-06-28 21:54 | ED.RN ---
Patient refused morphine, zofran, and pepcid because patient states, zofran will knock me out and make me too tired, I can't have morphine because I drove myself here, and I don't want the pepcid because I'm not that nauseous. This RN educated the patient on the use and importance of all the medications and the patient still refused the medications. notified.
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
[2024-06-28 22:13] LABS: Absolute Lymphocyte Count 2.67 X10^3/uL (0.83-4.51); Absolute Neutrophil Count 8.5 X10^3/uL (2.0-7.7); Basophil# 0.08 X10^3/uL; Basophil% 0.6 % (0-1); Eosinophil# 0.33 X10^3/uL; Eosinophils% 2.6 % (0-5); Hematocrit 37.5 % (37-47); Hemoglobin 12.3 g/dL (12.0-15.0); Lymphocyte # 2.67 X10^3/ul (0.83-4.51); Mean Corp Hgb Conc 32.8 g/dL (32-36); Mean Corpuscular Hgb 30.8 pg (27.0-32.0); Mean Corpuscular Volume 93.8 fL (81-99); Mean Platelet Vol. 9.3 fl (6.2-12.0); Monocyte# 1.03 X10^3/uL; Monocyte% 8.1 % (0-10); NRBC Flagged by Analyzer 0 % (0-5); Neutrophil # 8.52 X10^3/uL (2.7-7.7); Neutrophil % 67.2 % (47-70); Platelet Count 271 K/mm3 (150-450); RBC Distribution Width CV 13.4 % (11.6-14.6); RBC Distribution Width SD 46.1 fl (35.1-43.9); White Blood Count 12.7 K/mm3 (4.4-11.0)
[2024-06-28 22:40] LABS: ALB/GLOB Ratio 1.1 RATIO (0.9-2.4); AST(SGOT) 17 U/L (15-37); Alanine Aminotransfer ALT/SGPT 16 U/L (13-56); Albumin, Serum 3.5 g/dL (3.2-5.0); Alkaline Phosphatase 50 U/L (45-117); Anion Gap 5 (5-15); BUN 11 mg/dL (7-18); Chloride 106 mmol/L (98-107); Creatinine, Serum 0.74 mg/dL (0.55-1.02); EST Glomerular Filtration Rate 99 mL/min (>60); Est Glom Filt Rate - Afr Amer 120 mL/min (>60); Estimated Creatinine Clearance 98.28 ml/min; Globulin 3.3 g/dL (2.2-4.2); Glucose 102 mg/dL (74-106); Lipase 54 U/L (13-75); Protein, Total 6.8 g/dL (6.4-8.2); Sodium Level 141 mmol/L (136-145)
[2024-06-28 23:13] VITALS: BP 107/66; PULSE 67; RESP 16; O2SAT 100
[2024-06-28 23:34] VITALS: BP 107/66; PULSE 67; RESP 16; TEMP 36.6; O2SAT 100
== END 2024-06-28 23:37 | disposition home or self-care (01) ==
PROVIDERS: Emergency Provider Surgery; Visit Provider Surgery
DX: R10.11 Right upper quadrant pain (principal); Z87.891 Personal history of nicotine dependence
CPT/HCPCS: 76705; 80053; 83690; 85025; 99283; J3490